=== PATIENT | female | born 1950 | race Caucasian/White ===

== ENCOUNTER 2017-04-16 21:24 | Emergency (ER) | payer MEDICARE, MEDICAID ==
[~2017-04-16] VITALS: Ht 172.7 cm; Wt 80.0 kg
[2017-04-16] MEDS ORDERED: SODIUM CHLORIDE 0.9% 1,000ML IVBOLUS ONE (23:30)
[2017-04-16 23:59] LABS: RAPID INFLUENZA A POSITIVE (Negative); RAPID INFLUENZA B Negative (Negative)
[2017-04-17] LABS: HEMATOCRIT 40.6 % (34.6-47.8); HEMOGLOBIN 13.8 g/dL (11.7-16.4); WHITE BLOOD COUNT 6.4 x10^3/uL (3.4-10)
[2017-04-17 00:04] LABS: ASPARTATE AMINO TRANSFERASE 18 U/L (15-37); BLOOD UREA NITROGEN 10 mg/dL (7-18)
[2017-04-17 01:01] LABS: PATH.CAST-FLAG NOT PRESENT; SPERM-FLAG NOT PRESENT; SRC-FLAG NOT PRESENT; XTAL-FLAG NOT PRESENT; YLC-FLAG NOT PRESENT
[2017-04-17] MEDS ORDERED: KETOROLAC 30 MG/1 ML ONE (01:11)
[2017-04-17] MEDS: KETOROLAC 60 MG/2 ML IVPush ONE (01:14)
[2017-04-17] MEDS ORDERED: OSELTAMIVIR 75 MG CAPSULE PO ONE (02:00)
[2017-04-17 02:04] VITALS: BP 114/57
== END 2017-04-17 02:30 | disposition home or self-care (01) ==
LOC: ED 04-17 00:19
DX: J09.X2 Influenza due to identified novel influenza A virus with other respiratory manifestations (principal)
CPT/HCPCS: 36415; 71020; 80053; 81001; 83605; 85025; 87040; 87086; 87400; 96374; 99285; J1885; J7030

== ENCOUNTER 2017-12-02 07:02 | Inpatient (IN) | payer MEDICAID, MEDICARE ==
[~2017-12-02] VITALS: Ht 172.7 cm; Wt 78.3 kg
[2017-12-02] MEDS ORDERED: MORPHINE SULFATE 4 MG/ML, 1ML IVPush PRN ×2 (07:30→10:00)
[2017-12-02] MEDS ORDERED: SODIUM CHLORIDE FLUSH 10ML SYR IVF ONE (07:30)
[2017-12-02] MEDS ORDERED: ONDANSETRON 2MG/ML, 2ML IVPush ONE (07:30)
[2017-12-02 07:50] LABS: BASOPHILS # (AUTO) 0.08 x10^3/uL (0-0.1); BASOPHILS % (AUTO) 1 % (0-1); EOSINOPHILS # (AUTO) 0.22 x10^3/uL (0-0.4); EOSINOPHILS % (AUTO) 2 % (1-7); LYMPHOCYTES # (AUTO) 1.79 x10^3/uL (1-3.4); LYMPHOCYTES % (AUTO) 15 % (22-44); MD NO; MEAN CORPUSCULAR HEMOGLOBIN 30.2 pg (27.0-34.8); MEAN CORPUSCULAR HGB CONC 33.4 g/dL (32.4-35.8); MEAN CORPUSCULAR VOLUME 90.5 fL (80-100); MONOCYTES # (AUTO) 0.66 x10^3/uL (0.2-0.8); MONOCYTES % (AUTO) 6 % (2-9); NEUTROPHILS # (AUTO) 8.87 x10^3/uL (1.8-6.8); NEUTROPHILS % (AUTO) 76 % (42-75); PLATELET COUNT 267 x10^3/uL (130-400); RED BLOOD COUNT 4.51 x10^6/uL (3.82-5.3)
[2017-12-02 07:58] LABS: ALBUMIN 3.5 g/dL (3.4-5.0); ANION GAP 8 mmol/L (5-15); CALCIUM 8.7 mg/dL (8.5-10.1); CHLORIDE 108 mmol/L (98-107)
[2017-12-02 08:02] LABS: ALANINE AMINOTRANSFERASE 20 U/L (12-78); ALKALINE PHOSPHATASE 70 U/L (45-117); CREATININE 0.72 mg/dL (0.55-1.02); TOTAL PROTEIN 7.2 g/dL (6.4-8.2)
[2017-12-02] MEDS ORDERED: MORPHINE SULFATE 4 MG/ML, 1ML ONE (08:12)
[2017-12-02] MEDS ORDERED: ONDANSETRON 2MG/ML, 2ML ONE (08:12)
[2017-12-02] MEDS ORDERED: OMNIPAQUE 350 MG/ML, 100ML BOTTLE ONE (08:32)
[2017-12-02] MEDS ORDERED: SODIUM CHLORIDE 0.9% 1,000 ML IV ONE ×2 (09:53→09:54)
[2017-12-02] MEDS ORDERED: METRONIDAZOLE PMX 500MG/100ML 100 ML IVPB ONE (10:00)
[2017-12-02] MEDS ORDERED: ONDANSETRON 2MG/ML, 2ML IVPush PRN ×3 (10:00→11:00)
[2017-12-02] MEDS ORDERED: CIPROFLOXACIN/PMX 400MG/200ML 100 ML IVPB ONE (10:00)
[2017-12-02] MEDS ORDERED: SODIUM CHLORIDE FLUSH 10ML SYR IVF PRN (10:00)
[2017-12-02 10:06] LABS: MICROSCOPIC NOT IND
[2017-12-02 10:12] LABS: CULTURE INDICATED? NO
[2017-12-02] MEDS ORDERED: ONDANSETRON ODT 4 MG PO PRN ×2 (10:30→11:00)
[2017-12-02] MEDS ORDERED: LABETALOL 5MG/ML, 20ML IVPush PRN (10:30)
[2017-12-02 10:59] LABS: FREE T4 (FREE THYROXINE) 0.88 ng/dL (0.76-1.46)
[2017-12-02] MEDS: D5%-0.45% NACL 1,000 ML IV SCH ×2 (11:58→23:28)
[2017-12-02] MEDS: PIPERACILLIN/TAZO/PMX 3.375GM 50 ML IV SCH ×3 (11:58→23:28)
[2017-12-02 12:01] VITALS: BP 100/62
[2017-12-02] MEDS: morphine SULFATE 10 MG/ML, 1ML IVPush PRN ×2 (15:24→23:36)
[2017-12-02] MEDS: ACETAMINOPHEN 325 MG TABLET PO PRN ×2 (15:33→23:36)
[2017-12-02 20:05] VITALS: BP 97/63
[2017-12-03 00:45] VITALS: BP 97/66
[2017-12-03] MEDS: ACETAMINOPHEN 325 MG TABLET PO PRN (05:34)
[2017-12-03] MEDS: PIPERACILLIN/TAZO/PMX 3.375GM 50 ML IV SCH ×3 (05:34→18:21)
[2017-12-03 05:52] LABS: BASOPHILS # (AUTO) 0.08 x10^3/uL (0-0.1); BASOPHILS % (AUTO) 1 % (0-1); EOSINOPHILS # (AUTO) 0.17 x10^3/uL (0-0.4); EOSINOPHILS % (AUTO) 2 % (1-7); LYMPHOCYTES # (AUTO) 1.45 x10^3/uL (1-3.4); LYMPHOCYTES % (AUTO) 17 % (22-44); MD NO; MEAN CORPUSCULAR HEMOGLOBIN 30.2 pg (27.0-34.8); MEAN CORPUSCULAR HGB CONC 33.2 g/dL (32.4-35.8); MEAN CORPUSCULAR VOLUME 91.1 fL (80-100); MONOCYTES # (AUTO) 0.58 x10^3/uL (0.2-0.8); MONOCYTES % (AUTO) 7 % (2-9); NEUTROPHILS # (AUTO) 6.47 x10^3/uL (1.8-6.8); NEUTROPHILS % (AUTO) 74 % (42-75); PLATELET COUNT 248 x10^3/uL (130-400); RED BLOOD COUNT 4.12 x10^6/uL (3.82-5.3); RED CELL DISTRIBUTION WIDTH 13.8 % (9.6-15.2)
[2017-12-03 06:05] LABS: CHLORIDE 107 mmol/L (98-107)
[2017-12-03 06:19] LABS: ALANINE AMINOTRANSFERASE 39 U/L (12-78); ALBUMIN 3.1 g/dL (3.4-5.0); ALKALINE PHOSPHATASE 107 U/L (45-117); ANION GAP 6 mmol/L (5-15); CALCIUM 8.4 mg/dL (8.5-10.1); CREATININE 0.81 mg/dL (0.55-1.02); TOTAL PROTEIN 6.6 g/dL (6.4-8.2)
[2017-12-03] MEDS: PANTOPRAZOLE 40 MG IV IVPush SCH (08:10)
[2017-12-03] MEDS: D5%-0.45% NACL 1,000 ML IV SCH ×2 (08:10→18:21)
[2017-12-03 08:22] VITALS: BP 105/61
[2017-12-03 12:42] VITALS: BP 98/59
[2017-12-03 20:00] VITALS: BP 105/69
[2017-12-03] MEDS: morphine SULFATE 10 MG/ML, 1ML IVPush PRN (23:09)
[2017-12-04] MEDS: PIPERACILLIN/TAZO/PMX 3.375GM 50 ML IV SCH ×4 (01:27→19:15)
[2017-12-04 02:00] VITALS: BP 112/68
[2017-12-04] MEDS: morphine SULFATE 10 MG/ML, 1ML IVPush PRN ×2 (03:43→21:09)
[2017-12-04 05:42] LABS: BASOPHILS # (AUTO) 0.02 x10^3/uL (0-0.1); BASOPHILS % (AUTO) 0 % (0-1); EOSINOPHILS # (AUTO) 0.18 x10^3/uL (0-0.4); EOSINOPHILS % (AUTO) 3 % (1-7); LYMPHOCYTES # (AUTO) 1.57 x10^3/uL (1-3.4); LYMPHOCYTES % (AUTO) 28 % (22-44); MD NO; MEAN CORPUSCULAR HEMOGLOBIN 31.2 pg (27.0-34.8); MEAN CORPUSCULAR HGB CONC 34.1 g/dL (32.4-35.8); MEAN CORPUSCULAR VOLUME 91.6 fL (80-100); MEAN PLATELET VOLUME 7.9 fL (7.4-10.4); MONOCYTES # (AUTO) 0.46 x10^3/uL (0.2-0.8); MONOCYTES % (AUTO) 8 % (2-9); NEUTROPHILS # (AUTO) 3.36 x10^3/uL (1.8-6.8); NEUTROPHILS % (AUTO) 60 % (42-75); PLATELET COUNT 214 x10^3/uL (130-400); RED BLOOD COUNT 3.95 x10^6/uL (3.82-5.3); RED CELL DISTRIBUTION WIDTH 13.8 % (9.6-15.2)
[2017-12-04 05:46] LABS: CHLORIDE 108 mmol/L (98-107)
[2017-12-04 05:59] LABS: ALBUMIN 3.1 g/dL (3.4-5.0); ANION GAP 7 mmol/L (5-15); CALCIUM 8.5 mg/dL (8.5-10.1); CREATININE 0.73 mg/dL (0.55-1.02)
[2017-12-04] MEDS: D5%-0.45% NACL 1,000 ML IV SCH ×2 (06:30→16:03)
[2017-12-04 07:49] VITALS: BP 95/63
[2017-12-04] MEDS: PANTOPRAZOLE 40 MG IV IVPush SCH (08:00)
[2017-12-04 12:37] VITALS: BP 101/69
[2017-12-04 20:00] VITALS: BP 126/79
[2017-12-05 00:23] VITALS: BP 118/79
[2017-12-05] MEDS: PIPERACILLIN/TAZO/PMX 3.375GM 50 ML IV SCH ×4 (01:16→19:34)
[2017-12-05 06:03] LABS: ALBUMIN 3.1 g/dL (3.4-5.0); CHLORIDE 112 mmol/L (98-107)
[2017-12-05 06:06] LABS: ANION GAP 4 mmol/L (5-15); CALCIUM 8.7 mg/dL (8.5-10.1); CREATININE 0.77 mg/dL (0.55-1.02)
[2017-12-05 06:07] LABS: BASOPHILS # (AUTO) 0.02 x10^3/uL (0-0.1); BASOPHILS % (AUTO) 1 % (0-1); EOSINOPHILS # (AUTO) 0.15 x10^3/uL (0-0.4); EOSINOPHILS % (AUTO) 4 % (1-7); LYMPHOCYTES % (AUTO) 43 % (22-44); MD NO; MEAN CORPUSCULAR HEMOGLOBIN 30.6 pg (27.0-34.8); MEAN CORPUSCULAR HGB CONC 33.6 g/dL (32.4-35.8); MEAN PLATELET VOLUME 7.6 fL (7.4-10.4); MONOCYTES # (AUTO) 0.47 x10^3/uL (0.2-0.8); MONOCYTES % (AUTO) 11 % (2-9); NEUTROPHILS # (AUTO) 1.78 x10^3/uL (1.8-6.8); NEUTROPHILS % (AUTO) 42 % (42-75); PLATELET COUNT 234 x10^3/uL (130-400); RED BLOOD COUNT 4.13 x10^6/uL (3.82-5.3); RED CELL DISTRIBUTION WIDTH 13.4 % (9.6-15.2)
[2017-12-05] MEDS: PANTOPRAZOLE 40 MG IV IVPush SCH (08:05)
[2017-12-05 08:23] VITALS: BP 120/85
[2017-12-05 13:07] VITALS: BP 122/87
[2017-12-05 19:00] VITALS: BP 135/82
[2017-12-05] MEDS: D5%-0.45% NACL 1,000 ML IV SCH (19:34)
[2017-12-06] MEDS: PIPERACILLIN/TAZO/PMX 3.375GM 50 ML IV SCH ×2 (00:58→06:35)
[2017-12-06 01:28] VITALS: BP 127/78
[2017-12-06] MEDS ORDERED: ZOLPIDEM 5MG TABLET PO PRN (01:30)
[2017-12-06 05:45] LABS: BASOPHILS # (AUTO) 0.01 x10^3/uL (0-0.1); BASOPHILS % (AUTO) 0 % (0-1); EOSINOPHILS # (AUTO) 0.19 x10^3/uL (0-0.4); EOSINOPHILS % (AUTO) 4 % (1-7); LYMPHOCYTES % (AUTO) 34 % (22-44); MD NO; MEAN CORPUSCULAR HEMOGLOBIN 30.4 pg (27.0-34.8); MEAN CORPUSCULAR HGB CONC 33.6 g/dL (32.4-35.8); MEAN CORPUSCULAR VOLUME 90.4 fL (80-100); MEAN PLATELET VOLUME 7.7 fL (7.4-10.4); MONOCYTES # (AUTO) 0.55 x10^3/uL (0.2-0.8); MONOCYTES % (AUTO) 11 % (2-9); NEUTROPHILS # (AUTO) 2.54 x10^3/uL (1.8-6.8); NEUTROPHILS % (AUTO) 51 % (42-75); PLATELET COUNT 252 x10^3/uL (130-400); RED BLOOD COUNT 4.13 x10^6/uL (3.82-5.3); RED CELL DISTRIBUTION WIDTH 13.2 % (9.6-15.2)
[2017-12-06 05:51] LABS: ALBUMIN 3.1 g/dL (3.4-5.0); ANION GAP 5 mmol/L (5-15); CALCIUM 8.5 mg/dL (8.5-10.1); CHLORIDE 112 mmol/L (98-107); CREATININE 0.76 mg/dL (0.55-1.02)
[2017-12-06] MEDS ORDERED: POTASSIUM CHLORIDE 20 MEQ TAB.ER.PRT PO ONE (08:00)
[2017-12-06 08:12] VITALS: BP 115/69
[2017-12-06] MEDS ORDERED: CIPR500T87 PO (09:14)
[2017-12-06] MEDS ORDERED: METR500T PO (09:15)
[2017-12-06] MEDS ORDERED: PANT40TA5 PO (09:16)
[2017-12-06] MEDS ORDERED: metroNIDAZOLE 500 MG TABLET PO SCH (09:30)
[2017-12-06] MEDS ORDERED: CEFTRIAXONE 1,000 MG in SODIUM CHLORIDE 0.9% 50 ML IV SCH (09:30)
[2017-12-06] MEDS: PANTOPRAZOLE 40 MG IV IVPush SCH (10:08)
== END 2017-12-06 13:13 | disposition home or self-care (01) | DRG 392 ==
LOC: ED 09:14 → EDIP 09:54 → 3NE 10:30
PROVIDERS: ADMIT Hospitalist; ATTEND Hospitalist
DX: K57.30 Diverticulosis of large intestine without perforation or abscess without bleeding (principal); E86.0 Dehydration; F32.9 Major depressive disorder, single episode, unspecified; R53.1 Weakness
CPT/HCPCS: 36415; 74177; 80048; 80053; 81003; 82040; 83605; 83690; 83735; 84100; 84439; 84443; 85025; 87040; 93306; 96374; 96375; 99285; J0696; J2405; J2543; Q9967; C9113; J2270

== ENCOUNTER 2019-12-18 10:05 | Emergency (ER) | payer MEDICARE, MEDICAID ==
[~2019-12-18] VITALS: Ht 172.7 cm; Wt 71.8 kg
[~2019-12-18 10:05] MED LIST: CIPR500T87 PO; LAMOTRIGINE; METR500T PO; PANT40TA5 PO
--- NOTE | 2019-12-18 10:35 | NUR ---
PT CAME IN CO OF ABD PAIN "ALL OVER". PT STATES SHE HAS DIVERTICULITIS AND WAS HOSPITALIZED FOR 8 DAYS LAST TIME SHE HAD A FLARE UP. PT IS RESTING IN [facility]. CONNECTED TO MONITORING EQUIPMENT. MD IS BEDSIDE FOR ASSESSMENT. PT DENIES BLOODY STOOL OR PAINFUL URINATION
[2019-12-18 11:18] LABS: BASOPHILS # (AUTO) 0.03 x10^3/uL (0-0.1); BASOPHILS % (AUTO) 0 % (0-1); EOSINOPHILS # (AUTO) 0.12 x10^3/uL (0-0.4); EOSINOPHILS % (AUTO) 1 % (1-7); LYMPHOCYTES % (AUTO) 17 % (22-44); MD NO; MEAN CORPUSCULAR HEMOGLOBIN 30.8 pg (27.0-34.8); MEAN CORPUSCULAR HGB CONC 33.4 g/dL (32.4-35.8); MEAN CORPUSCULAR VOLUME 92.3 fL (80-100); MONOCYTES # (AUTO) 0.69 x10^3/uL (0.2-0.8); MONOCYTES % (AUTO) 7 % (2-9); NEUTROPHILS # (AUTO) 7.73 x10^3/uL (1.8-6.8); NEUTROPHILS % (AUTO) 75 % (42-75); PLATELET COUNT 257 x10^3/uL (130-400); RED BLOOD COUNT 4.44 x10^6/uL (3.82-5.3); RED CELL DISTRIBUTION WIDTH 13.2 % (9.6-15.2)
[2019-12-18 11:30] LABS: ALBUMIN 3.9 g/dL (3.4-5.0); ANION GAP 5 mmol/L (5-15); CHLORIDE 111 mmol/L (98-107)
[2019-12-18] MEDS ORDERED: CIPROFLOXACIN 500 MG TABLET PO ONE (11:30)
[2019-12-18] MEDS ORDERED: metroNIDAZOLE 500 MG TABLET PO ONE (11:30)
[2019-12-18 11:31] LABS: CREATININE 0.82 mg/dL (0.55-1.02)
[2019-12-18] MEDS ORDERED: CIPROFLOXACIN 500 MG TABLET ONE (11:35)
[2019-12-18] MEDS ORDERED: metroNIDAZOLE 500 MG TABLET ONE (11:35)
--- NOTE | 2019-12-18 11:46 | NUR ---
PT MEDICATED PER JUN. TO BE DC
[2019-12-18 11:55] VITALS: BP 128/76
== END 2019-12-18 11:57 | disposition home or self-care (01) ==
LOC: ED 10:48
DX: K57.32 Diverticulitis of large intestine without perforation or abscess without bleeding (principal)
CPT/HCPCS: 36415; 74176; 80048; 82040; 85025; 99284

== ENCOUNTER 2020-01-05 10:22 | Emergency (ER) | payer MEDICARE, MEDICAID ==
[~2020-01-05] VITALS: Ht 172.7 cm; Wt 72.8 kg
[~2020-01-05 10:22] MED LIST changes: -PANT40TA5 PO; +PANT40TA6 PO
[2020-01-05 10:35] VITALS: BP 106/58
--- NOTE | 2020-01-05 10:58 | NUR ---
NEAL-Miguel IS AT THE BEDSIDE FOR ASSESSMENT
== END 2020-01-05 11:19 | disposition home or self-care (01) ==
LOC: ED 11:07
DX: F39 Unspecified mood [affective] disorder (principal); Z76.0 Encounter for issue of repeat prescription
CPT/HCPCS: 99281

== ENCOUNTER 2020-08-14 14:10 | Emergency (ER) | payer MEDICARE, MEDICAID ==
[~2020-08-14] VITALS: Ht 172.7 cm; Wt 70.0 kg
--- NOTE | 2020-08-14 14:19 | NUR ---
PT BIB EMS FOR DIZZINESS. PT WAS GETTING OUT OF HER CAR WHEN SHE BECAME DIZZY AND FELT IF SHE WAS GOING TO PASS OUT. SHE LAID HERSELF TO THE GROUND AND CRAWLED INTO HER HOUSE TO CALL 911. PT STILL CO OF DIZZINESS. PT DENIES LOC OR CP. EKG COMPLETE. PT CONNECTED TO ALL MONITORING EQUIPMENT.
[2020-08-14] MEDS ORDERED: MECLIZINE CHEWABLE 25 MG TAB ONE (14:54)
[2020-08-14] MEDS ORDERED: ONDANSETRON ODT 4 MG ONE (14:54)
[2020-08-14] MEDS ORDERED: MECLIZINE CHEWABLE 25 MG TAB PO ONE (15:00)
[2020-08-14] MEDS ORDERED: ONDANSETRON ODT 4 MG PO ONE (15:00)
[2020-08-14 15:21] LABS: BASOPHILS % (AUTO) 1 % (0-1); EOSINOPHILS % (AUTO) 2 % (1-7); LYMPHOCYTES % (AUTO) 31 % (22-44); MEAN CORPUSCULAR HEMOGLOBIN 30.9 pg (27.0-34.8); MEAN CORPUSCULAR HGB CONC 32.9 g/dL (32.4-35.8); MEAN PLATELET VOLUME 7.9 fL (7.4-10.4); MONOCYTES % (AUTO) 6 % (2-9); NEUTROPHILS % (AUTO) 61 % (42-75); PLATELET COUNT 357 x10^3/uL (130-400); RED BLOOD COUNT 4.56 x10^6/uL (3.82-5.3)
[2020-08-14 15:22] LABS: MD NO
[2020-08-14 15:33] LABS: ALANINE AMINOTRANSFERASE 21 U/L (12-78); ALBUMIN 4.3 g/dL (3.4-5.0); ANION GAP 5 mmol/L (5-15); CALCIUM 9.6 mg/dL (8.5-10.1); CHLORIDE 109 mmol/L (98-107); CREATININE 0.82 mg/dL (0.55-1.02)
[2020-08-14 15:35] LABS: ALKALINE PHOSPHATASE 69 U/L (45-117); BILIRUBIN,TOTAL 0.5 mg/dL (0.2-1.0); TOTAL PROTEIN 7.4 g/dL (6.4-8.2)
[2020-08-14 15:52] VITALS: BP 126/77
--- NOTE | 2020-08-14 15:53 | NUR ---
BEDSIDE FOR RECHECK
== END 2020-08-14 16:24 | disposition home or self-care (01) ==
LOC: ED 16:10
DX: R42 Dizziness and giddiness (principal); R94.31 Abnormal electrocardiogram [ECG] [EKG]
CPT/HCPCS: 36415; 80053; 80320; 85025; 93005; 99284; Q0162; 99285; G0480

== ENCOUNTER 2020-10-07 17:33 | Emergency (ER) | payer MEDICARE, MEDICAID ==
[~2020-10-07] VITALS: Ht 172.7 cm; Wt 69.8 kg
[2020-10-07] MEDS ORDERED: ONDANSETRON 2MG/ML, 2ML IVPush ONE (18:00)
[2020-10-07] MEDS ORDERED: SODIUM CHLORIDE 0.9% 1,000ML IVBOLUS ONE (18:00)
[2020-10-07] MEDS ORDERED: MORPHINE SULFATE 4 MG/ML, 1ML IVPush PRN (18:00)
[2020-10-07] MEDS ORDERED: SODIUM CHLORIDE FLUSH 10ML SYR IVF ONE (18:00)
--- NOTE | 2020-10-07 18:00 | NUR ---
Pt reports 15 years of diverticulitis; diverticulosis diagnosed approx 2 months ago. Pt reports intial flare up symptoms of pain x3 days ago, denies any triggers or home treaments. Pt denies normal BM, states she hasn't been eating.
--- NOTE | 2020-10-07 18:14 | NUR ---
Pt ambulatory to bathroom for UA, steady gait.
[2020-10-07] MEDS ORDERED: ONDANSETRON 2MG/ML, 2ML ONE (18:24)
[2020-10-07] MEDS ORDERED: MORPHINE SULFATE 4 MG/ML, 1ML ONE (18:24)
[2020-10-07 18:27] LABS: BASOPHILS % (AUTO) 0 % (0-1); EOSINOPHILS % (AUTO) 2 % (1-7); LYMPHOCYTES % (AUTO) 16 % (22-44); MEAN CORPUSCULAR HGB CONC 33.7 g/dL (32.4-35.8); MEAN PLATELET VOLUME 8.1 fL (7.4-10.4); MONOCYTES % (AUTO) 8 % (2-9); NEUTROPHILS % (AUTO) 74 % (42-75); PLATELET COUNT 277 x10^3/uL (130-400); RED BLOOD COUNT 4.58 x10^6/uL (3.82-5.3); RED CELL DISTRIBUTION WIDTH 13.4 % (9.6-15.2)
[2020-10-07 18:38] VITALS: BP 109/63
[2020-10-07 18:39] LABS: ALANINE AMINOTRANSFERASE 18 U/L (12-78); ALBUMIN 3.7 g/dL (3.4-5.0); ANION GAP 6 mmol/L (5-15); CALCIUM 8.9 mg/dL (8.5-10.1); CHLORIDE 107 mmol/L (98-107); CREATININE 0.79 mg/dL (0.55-1.02)
[2020-10-07 18:42] LABS: ALKALINE PHOSPHATASE 85 U/L (45-117); BILIRUBIN,TOTAL 0.7 mg/dL (0.2-1.0); TOTAL PROTEIN 7.6 g/dL (6.4-8.2)
--- NOTE | 2020-10-07 18:51 | NUR ---
Pt to imaging. Report to AMIE Downing.
--- NOTE | 2020-10-07 18:58 | NUR ---
AMIE Downing, to assume full care.
--- NOTE | 2020-10-07 19:03 | NUR ---
RECEIVED REPORT FROM FREDDIE HOLLOWAY. PT BACK FROM IMAGING. CONNECTED TO MONITORS. VSS
[2020-10-07 19:08] LABS: MICROSCOPIC AUTO
[2020-10-07] MEDS ORDERED: metroNIDAZOLE 500 MG TABLET ONE (20:14)
[2020-10-07] MEDS ORDERED: CIPROFLOXACIN 500 MG TABLET ONE (20:15)
[2020-10-07] MEDS ORDERED: metroNIDAZOLE 500 MG TABLET PO ONE (20:30)
[2020-10-07] MEDS ORDERED: CIPROFLOXACIN 500 MG TABLET PO ONE (20:30)
[2020-10-07] MEDS ORDERED: OMNIPAQUE 350 MG/ML, 100ML BOTTLE ONE (22:00)
== END 2020-10-07 21:19 | disposition home or self-care (01) ==
LOC: ED 21:14
DX: K57.32 Diverticulitis of large intestine without perforation or abscess without bleeding (principal); R10.32 Left lower quadrant pain
CPT/HCPCS: 36415; 74177; 80053; 81001; 83690; 85025; 87077; 87086; 87186; 96361; 96374; 96375; 99285; J2270; J2405; J7030; Q9967

== ENCOUNTER 2020-12-26 10:36 | Emergency (ER) | payer MEDICAID, MEDICARE ==
[~2020-12-26] VITALS: Ht 172.7 cm; Wt 69.0 kg
--- NOTE | 2020-12-26 11:20 | NUR ---
PT AMBULATORY TO ROOM 34 W/ C/O DIZZINESS AND NAUSEA/DIARRHEA X 1 WEEK. PT STATES SHE HAS HX DIVERTICULITIS. PT STATES SHE WAS EXPOSED TO HER NEICE 2 WEEKS AGO FOR COVID. PT DENIES CP/SOB. PT RESTING ON GURNEY. NADN. MONITORS APPLIED. VSS. WARM BLANKET PROVIDED. CALL LIGHT IN REACH.
--- NOTE | 2020-12-26 12:05 | NUR ---
PT RESTING ON GURNEY. NADN. HWANG.
--- NOTE | 2020-12-26 12:49 | NUR ---
PT RESTING ON GURNEY. NADN. HWANG.
--- NOTE | 2020-12-26 13:08 | NUR ---
PER ERP DR. SHERMAN NO NEED FOR LABS OR UA.
--- NOTE | 2020-12-26 13:48 | NUR ---
PT TO AND FROM CT IN STABLE CONDITION. NADN. VSS.
--- NOTE | 2020-12-26 14:16 | NUR ---
PT CHART REVIEWED AND PLACED FOR RECHECK.
--- NOTE | 2020-12-26 14:38 | NUR ---
ERP DR. SHERMAN AT BEDSIDE FOR RE-EVAL.
[2020-12-26 14:52] VITALS: BP 141/80
== END 2020-12-26 15:16 | disposition home or self-care (01) ==
LOC: ED 15:10
DX: R42 Dizziness and giddiness (principal); Z20.822 Contact with and (suspected) exposure to COVID-19; R11.0 Nausea; R51.9 Headache, unspecified
CPT/HCPCS: 70450; 93005; 99285; U0003; U0005